=== PATIENT | male | born 1970 | race Two or more races ===

== ENCOUNTER 2017-08-18 07:43 | Day surgery (SDC) | END 2017-08-18 13:20 | disposition home or self-care (01) ==

== ENCOUNTER 2018-08-19 10:41 | Day surgery (SDC) | payer OTHER ==
[~2018-08-19] VITALS: Ht 177.8 cm; Wt 82.1 kg
[2018-08-19] VITALS (13 sets, daily range): BP systolic 106–120; BP diastolic 60–67; PULSE 70–94; RESP 15–21; Ht 177.8 cm; Wt 82.1 kg
[~2018-08-19 10:41] MED LIST: CEFAZOLIN 2 GM/50 ML (PMX) 50 ML IVPB ONE; GLYCOPYRROLATE 0.4 MG INJ ONE; PROPOFOL 200 MG INJ ONE; SOD CHLORIDE 0.9% 1,000 ML IV SCH
[2018-08-19] MEDS ORDERED: POLYMYXIN/BACITRACIN 1L IRRIG ONE (11:29)
[2018-08-19] MEDS ORDERED: BUPIVACAINE 0.25%/EPI (SDV) 30 ML INJ ONE (11:29)
--- NOTE | 2018-08-19 12:17 | PREAC ---
Date/Time of Note Date/Time of Note DATE: 08/19/18 TIME: 12:15 Anesthesia Eval and Record Evaluation Time Pre-Procedure Interview DATE: 08/19/18 TIME: 12:15 Age 48 Sex male NPO: 8 hrs Preoperative diagnosis recurrent inguinal hernia, umbilical hernia Planned procedure laparoscopic repair of right inguinal and umbilical hernia Past Medical History Past Medical History: None Surgery & Anesthesia Issues No known issue Meds Anticoagulation: No Beta Ayde within 24 hr: No Reason Beta Ayde not given: Pt. not on B-Ayde No Active Prescriptions or Reported Meds Current Medications Sodium Chloride 1,000 ml @ 75 mls/hr [id number] IV ; Start 08/19/18 at 07:00 Meds reviewed: Yes Allergies Coded Allergies: No Known Allergy (Unverified , 08/19/18) Allergies Reviewed: Yes Labs/Studies Labs Reviewed: Reviewed by anesthesiologist test: N/A Pre-procedure Exam Last vitals Vital Signs Date Temp Pulse Resp B/P (MAP) Pulse Ox O2 O2 Flow FiO2 Time Delivery Rate 08/19/18 98.1 83 16 115/67 96 11:30 (83) Airway: Adequate mouth opening, Adequate thyromental dist Mallampati: Mallampati I Teeth: Normal Lung: Normal Heart: Normal ASA Physical Status ASA physical status: 1 Emergency: None Planned Anesthetic General/MAC: ETT Pre-operative Attestations Prior to commencing anesthesia and surgery, the patient was re-evaluated, there was verification of: *The patient's identity *The results of appropriate recent lab work and preoperative vital signs *The above evaluation not changing prior to induction *Anesthetic plan, risk benefits, alternative and complications discussed with patient/family; questions answered; patient/family understands, accepts and wishes to proceed. JOSSIE ORDONEZ Aug 19, 2018 12:17
[2018-08-19] MEDS ORDERED: PROPOFOL 20 ML ONE (12:25)
[2018-08-19] MEDS ORDERED: LIDOCAINE 2% (SDV) 5 ML INJ ONE (12:25)
[2018-08-19] MEDS ORDERED: ROCURONIUM 50 MG INJ ONE (12:26)
--- NOTE | 2018-08-19 12:37 | HPN ---
Date/Time of Note Date/Time of Note DATE: 08/19/18 TIME: 12:37 Interval H&P Admission Note Pt. seen H&P reviewed: No system changes SIGRID JONES MD Aug 19, 2018 12:37
[2018-08-19] MEDS ORDERED: CEFAZOLIN 1 GM INJ ONE (12:53)
[2018-08-19] MEDS ORDERED: ONDANSETRON 4 MG INJ ONE (12:54)
[2018-08-19] MEDS ORDERED: DEXAMETHASONE 4 MG/ML 5 ML INJ ONE (12:54)
--- NOTE | 2018-08-19 14:49 | OPR ---
Date/Time of Note Date/Time of Note DATE: 08/19/18 TIME: 14:49 Operative Report Procedure Date: Aug 19, 2018 Preoperative Diagnosis 1. Recurrent right inguinal hernia 2. Umbilical hernia Postoperative Diagnosis 1. Recurrent right inguinal hernia 2. Umbilical hernia Operation/Procedure Performed 1. Laparoscopic repair of recurrent right inguinal hernia with mesh 2. Excision of prior mesh plug 3. Repair of umbilical hernia Surgeon see signature line [employer] Att[employer] None Anesthesia Type: general Anesthesiologist: CANDACE ORDONEZ MD Estimated Blood Loss: minimal Transfusion none Specimen Old mesh plug Grafts/Implants Covidien Symbotex mesh 10 x 15 cm Complications none Pt Condition Post Procedure: stable Disposition: PACU Indications The patient is a 48-year-old [place] male with a prior history of lymphoma in remission and a prior right inguinal hernia repair with mesh who presented to the office complaining of a recurrent, painful right groin bulge as well as a bulge involving the umbilicus. He was diagnosed on clinical exam as having a recurrent right inguinal hernia as well as an umbilical hernia. This was confirmed via CT scan. The patient was scheduled for laparoscopic right inguinal hernia repair with mesh; possible open along with repair of the umbilical hernia to prevent sequelae of hernia disease which include, but are not limited to: Incarceration and strangulation. All risks and benefits of the procedure including but not limited to: Wound infection, excessive bleeding, postoperative seroma/hematoma formation, nerve injury which may be temporary versus permanent, injury to the reproductive organs including the vas deferens and the testicle which may lead to testicular atrophy, injury to intra-abdominal organs necessitating subsequent operation, hernia recurrence, chronic pain, etc. were all explained to the patient full detail. The patient fully understood and wishe d to proceed with the procedure. Informed consent was therefore obtained. Procedure Description The patient was brought to the operating room and placed supine on the operating table. Bilateral sequential compression devices were placed on both lower extremities and a dose of prophylactic broad-spectrum perioperative intravenous antibiotics was given. After the induction of smooth general endotracheal anesthesia the patient's abdomen, groins and scrotum were prepped and draped in standard surgical fashion. A supraumbilical transverse incision was made using an 11 blade scalpel and carried down through the skin and subcutaneous tissue to the level of the anterior fascia using blunt dissection. The umbilicus was then encircled and transected at its base. A fat-containing umbilical hernia was identified. The contents were reduced back into the perineal cavity. A 12 mm trocar was then placed through which a. 5 mm 30 laparoscope was placed. Diagnostic laparoscopy showed a large recurrent direct right inguinal hernia with mesh plug within the peritoneal cavity. There was omentum adhesed to the mesh plug. There was a small indirect right inguinal hernia identified. There was no other intra-abdominal pathology. Two further working ports were placed. They were both 5 mm ports placed at the level of the umbilicus in the right and left midclavicular lines. All port sites were anesthetized with 0.25% Marcaine with epinephrine prior to incision. The patient was then placed in Trendelenburg position. The omentum was dissected off of the old mesh plug. Starting from the anterior superior iliac spine on the right side the peritoneum was mobilized off of the underlying transversalis fascia to the level of the right median umbilical ligament. Dissection was continued medially and Hung's ligament and the pubis were identified. The direct and indirect hernia sacs were then reduced back into the intra-abdominal cavity and dissected off of the spermatic cord. There was scarring of the peritoneum and hernia sac to the area of the prior mesh repair. The spermatic cord and its structures were identified and preserved throughout the entirety of the procedure. Once the hernia sac was completely reduced back into the abdominal cavity and dissected off of the spermatic cord the peritoneal portion of the old mesh plug was transected, withdrawn through the 12 mm port site, and passed off the field as specimen. A 10 x 15 cm piece of Covidien Symbotex mesh was then used to repair the hernia defects. It covered all possible openings of the myopectineal orifice. The mesh was soaked in antibiotic containing irrigation prior to inserting it into the field. The mesh was secured in place using a secure strap tacker. With the repair complete hemostasis was inspected for and noted to be total. Pneumoperitoneum was then decreased to 10 mmHg and the peritoneum was reapproximated over the mesh using a secure strap tacker. Once this was complete pneumoperitoneum was released and all trocars were withdrawn under direct vision. The umbilical hernia defect was repaired using a 0 Vicryl suture in [id number] fashion. The umbilicus was then tacked back down to the fascia using interrupted 3-0 Vicryl suture. Subcutaneous tissues were irrigated with more irrigation. Further local anesthesia was applied around the skin of the incision sites. At this point attention was turned to the right ilioinguinal nerve block. 10 mL of 0.25% Marcaine with epinephrine were injected in a radial fashion proximally 2 cm medial and inferior to the right anterior superior iliac spine. Once this was completed the skin of the incision sites was reapproximated using 4-0 Monocryl sutures in subcuticular fashion. Incisions were cleaned and Dermabond was applied. The patient was awoken from anesthesia and transported to the recovery room in stable condition. Both testicles were palpated at the end of the case and noted to be in their anatomical position. All counts were correct at the end of the case x 2. SIGRID JONES MD Aug 19, 2018 14:49
[2018-08-19] MEDS ORDERED: NEOSTIGMINE 3 MG/3 ML SYRINGE ONE (14:51)
[2018-08-19] MEDS ORDERED: GLYCOPYRROLATE 0.4 MG INJ ONE (14:51)
[2018-08-19] MEDS ORDERED: SUGAMMADEX SODIUM 200 MG/2 ML VIAL IV ONE (14:55)
[2018-08-19] MEDS ORDERED: OXYCODONE/ACETAMINOPHEN (5/325) TAB PO PRN ×4 (15:00→15:30)
[2018-08-19] MEDS ORDERED: morphine 2 MG INJ IV PRN (15:00)
[2018-08-19] MEDS ORDERED: IBUPROFEN 600 MG TAB PO PRN (15:00)
[2018-08-19] MEDS ORDERED: ONDANSETRON 4 MG INJ IV PRN ×2 (15:00→15:30)
[2018-08-19] MEDS ORDERED: KETOROLAC 30 MG INJ IV PRN ×2 (15:00→15:30)
--- NOTE | 2018-08-19 15:19 | PAC ---
Date/Time of Note Date/Time of Note DATE: 08/19/18 TIME: 15:19 Post-Anesthesia Notes Post-Anesthesia Note Last documented vital signs Vital Signs Date Temp Pulse Resp B/P (MAP) Pulse Ox O2 O2 Flow FiO2 Time Delivery Rate 08/19/18 98.1 83 16 115/67 96 1519 (83) Activity: WNL Respiratory function: WNL Cardiovascular function: WNL Mental status: Baseline Pain reasonably controlled: Yes Hydration appropriate: Yes Nausea/Vomiting absent: Yes JOSSIE ORDONEZ Aug 19, 2018 15:19
[2018-08-19] MEDS ORDERED: LABETALOL HCL 20MG INJ IV PRN (15:30)
[2018-08-19] MEDS ORDERED: ALBUTEROL 0.083% (NEB) 2.5 MG/3 ML AMP HHN PRN (15:30)
[2018-08-19] MEDS ORDERED: MIDAZOLAM 1 MG/ML 2 ML INJ IV PRN (15:30)
[2018-08-19] MEDS ORDERED: HYDROmorphONE 1 MG/5 ML IV SYRINGE IV PRN ×3 (15:30)
[2018-08-19] MEDS ORDERED: DIPHENHYDRAMINE 50 MG INJ IV PRN (15:30)
[2018-08-19] MEDS ORDERED: FENTAnyl 50 MCG/ML VIAL IV PRN ×3 (15:30)
[2018-08-19] MEDS ORDERED: METOCLOPRAMIDE 10 MG INJ IV PRN (15:30)
[2018-08-19] MEDS ORDERED: EPHEDrine SULFATE 50 MG/5 ML SYG IV PRN (15:30)
[2018-08-19] MEDS ORDERED: hydrALAzine 20 MG INJ IV PRN (15:30)
[2018-08-19] MEDS ORDERED: MEPERIDINE 25 MG INJ IV PRN (15:30)
== END 2018-08-19 16:42 | disposition home or self-care (01) ==
LOC: SDS 10:41
PROVIDERS: ATTEND Surgery
DX: K43.2 Incisional hernia without obstruction or gangrene (principal); K42.9 Umbilical hernia without obstruction or gangrene
CPT/HCPCS: 49585; 49656; 88304; C1781; J0690; J1100; J1170; J1885; J2270; J2405; J2710; J3010; Z7512; Z7610